=== PATIENT | male | born 1945 | race Caucasian/White ===

== ENCOUNTER 2021-03-24 04:25 | Inpatient (IN) | payer MEDICARE ==
[2021-03-24] MEDS ORDERED: Albuterol/Ipratropium 3.0-0.5 MG/3 ML Neb Soln NEB ONE (05:15)
--- NOTE | 2021-03-24 05:17 | EDM.PDOC ---
ED HPI GENERAL MEDICAL PROBLEM - General Chief Complaint: Respiratory Problem Stated Complaint: SOB Time Seen by Provider: 03/24/21 05:15 Source of Information: Reports: Patient History Limitations: Reports: No Limitations - History of Present Illness INITIAL COMMENTS - FREE TEXT/NARRATIVE: pt arrived with increased sob. He has not had increased swelling in the ankles. pt has been coughing lot for about 1 week and raising thick sputum. Onset: Gradual Duration: Day(s): Location: Reports: Chest Associated Symptoms: Reports: Cough, Shortness of Breath, Weakness - Related Data Allergies Allergy/AdvReac Type Severity Reaction Status Date / Time No Known Allergies Allergy Verified 03/24/21 04:38 Home Meds: Home Meds Acetaminophen/Diphenhydramine [Tylenol Pm Ex-Strength Caplet] 1 each PO BEDTIME 03/24/21 [History] Albuterol Sulfate 2.5 mg IH Q6HR PRN 03/24/21 [History] Albuterol Sulfate [Albuterol Sulfate Hfa] 8.5 gm IH ASDIRECTED 03/24/21 [History] Alendronate Sodium 70 mg PO WEEKLY 03/24/21 [History] DULoxetine [Cymbalta] 60 mg PO DAILY 03/24/21 [History] Finasteride 5 mg PO DAILY 03/24/21 [History] Losartan [Cozaar] 100 mg PO DAILY 03/24/21 [History] Metoprolol Succinate [Toprol Xl] 12.5 mg PO BEDTIME 03/24/21 [History] Pregabalin [Lyrica] 150 mg PO BID 03/24/21 [History] Tamsulosin [Tamsulosin 24 Hr] 0.4 mg PO DAILY 03/24/21 [History] Warfarin Sodium 4 mg PO ASDIRECTED 03/24/21 [History] amLODIPine Besylate [Amlodipine Besylate] 10 mg PO DAILY 03/24/21 [History] atorvaSTATin Calcium [Atorvastatin Calcium] 40 mg PO BEDTIME 03/24/21 [History] hydroCHLOROthiazide [Hydrochlorothiazide] 12.5 mg PO DAILY 03/24/21 [History] metFORMIN [Glucophage] 500 mg PO BIDMEALS 03/24/21 [History] Past Medical History HEENT History: Reports: Cataract, Retinal Detachment Other HEENT History: left detach Cardiovascular History: Reports: Afib, CAD, Heart Murmur, High Cholesterol, Hypertension, [place] Respiratory History: Reports: COPD, Sleep Apnea, SOB Gastrointestinal History: Reports: GERD Genitourinary History: Reports: BPH Musculoskeletal History: Reports: Arthritis, Back Pain, Chronic, Fracture Neurological History: Reports: None, Neuropathy, Peripheral Psychiatric History: Reports: Depression, Suicidal Ideation Endocrine/Metabolic History: Reports: Diabetes, Type II, Obesity/BMI 30+ Hematologic History: Reports: None Immunologic History: Reports: None Oncologic (Cancer) History: Reports: None Dermatologic History: Reports: Other (See Below) Other Dermatologic History: lower leg - Infectious Disease History Infectious Disease History: Reports: Chicken Pox, Mumps - Past Surgical History HEENT Surgical History: Reports: Cataract Surgery Cardiovascular Surgical History: Reports: Coronary Artery Stent Other Cardiovascular Surgeries/Procedures: 2002 10 GI Surgical History: Reports: Appendectomy, Colonoscopy, Hernia Repair/Other Musculoskeletal Surgical History: Reports: Other (See Below) Other Musculoskeletal Surgeries/Procedures:: wrist surg Social & Family History - Tobacco Use Tobacco Use Status *Q: Former Tobacco User Used Tobacco, but Quit: Yes Month/Year Tobacco Last Used: 2002 - Caffeine Use Caffeine Use: Reports: Coffee ED ROS GENERAL - Review of Systems Review Of Systems: See Below Constitutional: Reports: Other (pt has been doing alot of coughin for about 1 week. ) HEENT: Reports: No Symptoms Respiratory: Reports: Shortness of Breath, Wheezing, Cough, Sputum Cardiovascular: Reports: No Symptoms, Other (pt has a history of atrial fib. ) Endocrine: Reports: No Symptoms GI/Abdominal: Reports: No Symptoms : Reports: No Symptoms Musculoskeletal: Reports: No Symptoms Skin: Reports: No Symptoms Neurological: Reports: No Symptoms Psychiatric: Reports: Anxiety ED EXAM, GENERAL - Physical Exam Exam: See Below Free Text/Narrative:: pt arrived with a history of increased sob. He has been coughing for about 1 week and rasing thick sputum. Exam Limited By: Respiratory Distress General Appearance: Anxious, Moderate Distress, Other (pupils equal and reactive to lite) Ears: Normal TMs Nose: Normal Inspection Throat/Mouth: Normal Inspection Head: Atraumatic Neck: Normal Inspection Respiratory/Chest: Decreased Breath Sounds, Crackles, Wheezing GI/Abdominal: Soft, Non-Tender (Male) Exam: Deferred Rectal (Males) Exam: Deferred Back Exam: Normal Inspection Extremities: Other (pt has severe stasis dermatitis) Neurological: Alert, Oriented, Normal Cognition #1 Interpretation Rhythm: Other (pt is having ventricular ectopics. Pt has a rt bundle branch block.) QRS: RBBB Course - Vital Signs Last Recorded V/S: Last Vital Signs Temp 36.6 C 03/24/21 04:32 Pulse 64 03/24/21 06:03 Resp 19 03/24/21 06:03 BP 154/70 H 03/24/21 06:03 Pulse Ox 88 L 03/24/21 06:24 - Orders/Labs/Meds Orders: Active Orders 24 hr Category Date Time Status EKG Documentation Completion [RC] ASDIRECTED Care 03/24/21 05:23 Active RT Aerosol Therapy [RC] ASDIRECTED Care 03/24/21 05:15 Active Chest 1V Frontal [CR] Stat Exams 03/24/21 05:09 Taken Sodium Chloride 0.9% [Saline Flush] Med 03/24/21 05:40 Active 10 ml FLUSH ASDIRECTED PRN Saline Lock Insert [OM.PC] Routine Oth 03/24/21 05:40 Ordered EKG 12 Lead [EK] Routine Ther 03/24/21 05:23 Ordered Medication Orders Sodium Chloride (Sodium Chloride 0.9% 10 Ml Syringe) 10 ml FLUSH ASDIRECTED PRN PRN Reason: Keep Vein Open Last Admin: 03/24/21 05:59 Dose: 10 ml Documented by: PREILOR Labs: Laboratory Tests 03/24/21 03/24/21 03/24/21 Range/Units 05:28 05:28 05:28 WBC 6.6 (4.5-11.0) K/uL RBC 4.75 (4.30-5.90) M/uL Hgb 12.9 (12.0-15.0) g/dL Hct 41.0 (40.0-54.0) % MCV 86 (80-98) fL MCH 27 (27-31) pg MCHC 32 (32-36) % Plt Count 160 (150-400) K/uL Neut % (Auto) 72.5 H (36-66) % Lymph % (Auto) 14.8 L (24-44) % [place] % (Auto) 8.6 H (2-6) % Eos % (Auto) 3.8 (2-4) % Baso % (Auto) 0.3 (0-1) % PT (9.5-12.0) sec INR (0.80-1.20) D-Dimer, Quantitative (0.0-500.0) ng/mL Sodium 143 (140-148) mmol/L Potassium 4.3 (3.6-5.2) mmol/L Chloride 105 (100-108) mmol/L Carbon Dioxide 29 (21-32) mmol/L Anion Gap 8.7 (5.0-14.0) mmol/L BUN 20 H (7-18) mg/dL Creatinine 1.2 (0.8-1.3) mg/dL Est Cr Clr Drug Dosing 56.58 mL/min Estimated GFR (MDRD) 59 L (>60) Glucose 127 H (74-106) mg/dL Calcium 9.1 (8.5-10.1) mg/dL Total Bilirubin 0.5 (0.2-1.0) mg/dL AST 16 (15-37) U/L ALT 20 (12-78) U/L Alkaline Phosphatase 71 (46-116) U/L Troponin I 0.037 (0.000-0.056) ng/mL NT-Pro-B Natriuret Pep 2480 H (5-450) pg/mL Total Protein 8.0 (6.4-8.2) g/dL Albumin 3.7 (3.4-5.0) g/dL Globulin 4.3 H (2.3-3.5) g/dL Albumin/Globulin Ratio 0.9 L (1.2-2.2) Urine Color (YELLOW) Urine Appearance (CLEAR) Urine pH (5.0-8.0) Ur Specific [place] (1.008-1.030) Urine Protein (NEGATIVE) mg/dL Urine Glucose (UA) (NEGATIVE) mg/dL Urine Ketones (NEGATIVE) mg/dL Urine Occult Blood (NEGATIVE) Urine Nitrite (NEGATIVE) Urine Bilirubin (NEGATIVE) Urine Urobilinogen (0.2-1.0) EU/dL Ur Leukocyte Esterase (NEGATIVE) Urine RBC (0-5) Urine WBC (0-5) Ur Epithelial Cells Amorphous Sediment Urine Bacteria Urine Mucus Urine Other 03/24/21 03/24/21 03/24/21 Range/Units 05:28 05:28 06:26 WBC (4.5-11.0) K/uL RBC (4.30-5.90) M/uL Hgb (12.0-15.0) g/dL Hct (40.0-54.0) % MCV (80-98) fL MCH (27-31) pg MCHC (32-36) % Plt Count (150-400) K/uL Neut % (Auto) (36-66) % Lymph % (Auto) (24-44) % [place] % (Auto) (2-6) % Eos % (Auto) (2-4) % Baso % (Auto) (0-1) % PT 44.1 H (9.5-12.0) sec INR 4.16 H* (0.80-1.20) D-Dimer, Quantitative 485.02 (0.0-500.0) ng/mL Sodium (140-148) mmol/L Potassium (3.6-5.2) mmol/L Chloride (100-108) mmol/L Carbon Dioxide (21-32) mmol/L Anion Gap (5.0-14.0) mmol/L BUN (7-18) mg/dL Creatinine (0.8-1.3) mg/dL Est Cr Clr Drug Dosing mL/min Estimated GFR (MDRD) (>60) Glucose (74-106) mg/dL Calcium (8.5-10.1) mg/dL Total Bilirubin (0.2-1.0) mg/dL AST (15-37) U/L ALT (12-78) U/L Alkaline Phosphatase (46-116) U/L Troponin I (0.000-0.056) ng/mL NT-Pro-B Natriuret Pep (5-450) pg/mL Total Protein (6.4-8.2) g/dL Albumin (3.4-5.0) g/dL Globulin (2.3-3.5) g/dL Albumin/Globulin Ratio (1.2-2.2) Urine Color Yellow (YELLOW) Urine Appearance Clear (CLEAR) Urine pH 5.5 (5.0-8.0) Ur Specific [place] 1.020 (1.008-1.030) Urine Protein Negative (NEGATIVE) mg/dL Urine Glucose (UA) Negative (NEGATIVE) mg/dL Urine Ketones Negative (NEGATIVE) mg/dL Urine Occult Blood Negative (NEGATIVE) Urine Nitrite Negative (NEGATIVE) Urine Bilirubin Negative (NEGATIVE) Urine Urobilinogen 0.2 (0.2-1.0) EU/dL Ur Leukocyte Esterase Trace H (NEGATIVE) Urine RBC 0-5 (0-5) Urine WBC 0-5 (0-5) Ur Epithelial Cells Rare Amorphous Sediment Not seen Urine Bacteria Not seen Urine Mucus Not seen Urine Other See note Meds: Medications Generic Name Dose Route Start Last Admin Trade Name Freq PRN Reason Stop Dose Admin Sodium Chloride 10 ml 03/24/21 05:40 03/24/21 05:59 Sodium Chloride 0.9% 10 Ml Syringe FLUSH 10 ml ASDIRECTED PRN Administration Keep Vein Open Discontinued Medications Generic Name Dose Route Start Last Admin Trade Name Freq PRN Reason Stop Dose Admin Albuterol/Ipratropium 3 ml 03/24/21 05:15 03/24/21 05:21 Albuterol/Ipratropium 3.0-0.5 Mg/3 Ml Neb Soln NEB 03/24/21 05:16 3 ml ONETIME ONE Administration Furosemide 60 mg 03/24/21 05:40 03/24/21 05:58 Furosemide 40 Mg/4 Ml Vial IVPUSH 03/24/21 05:41 60 mg ONETIME ONE Administration Phytonadione 3 mg 03/24/21 06:14 03/24/21 06:46 Phytonadione 1 Mg/0.5 Ml Amp IM 03/24/21 06:15 3 mg ONETIME ONE Administration - Re-Assessments/Exams Free Text/Narrative Re-Assessment/Exam: 03/24/21 07:02 PT HAD A NORMAL TROP, HIS BNP IS ELEVATED. tHE INR IS GREATER THAN 4. hE WAS GIVEN lASIX BECAUSE OF PROBALE CHF AND HE IS PUTTING OUT WELL. Departure - Departure Disposition: Admitted As Inpatient 64 Condition: Fair Clinical Impression: CHF (congestive heart failure), Chronic a-fib, Elevated INR - Discharge Information Referrals: PCP,None [Primary Care Provider] - Forms: ED Department Discharge Care Plan Goals: ADMIT TO [facility]. Sepsis Event Note (ED) - Evaluation Sepsis Screening Result: No Definite Risk - Focused Exam Vital Signs: Vital Signs Temp Pulse Resp BP Pulse Ox Pulse Ox 03/24/21 06:24 88 L 03/24/21 06:03 64 19 154/70 H 94 L 03/24/21 04:32 36.6 C 67 20 163/80 H 93 L - My Orders Last 24 Hours: My Active Orders 03/24/21 05:09 Chest 1V Frontal [CR] Stat 03/24/21 05:15 RT Aerosol Therapy [RC] ASDIRECTED 03/24/21 05:23 EKG Documentation Completion [RC] ASDIRECTED EKG 12 Lead [EK] Routine 03/24/21 05:40 Sodium Chloride 0.9% [Saline Flush] 10 ml FLUSH ASDIRECTED PRN Saline Lock Insert [OM.PC] Routine - Assessment/Plan Last 24 Hours: My Active Orders 03/24/21 05:09 Chest 1V Frontal [CR] Stat 03/24/21 05:15 RT Aerosol Therapy [RC] ASDIRECTED 03/24/21 05:23 EKG Documentation Completion [RC] ASDIRECTED EKG 12 Lead [EK] Routine 03/24/21 05:40 Sodium Chloride 0.9% [Saline Flush] 10 ml FLUSH ASDIRECTED PRN Saline Lock Insert [OM.PC] Routine
[2021-03-24] MEDS ORDERED: Furosemide 40 MG/4 ML VIAL IVPUSH ONE (05:40)
[2021-03-24] MEDS ORDERED: Sodium Chloride 0.9% 10 ML Syringe FLUSH PRN ×2 (05:40→09:52)
--- NOTE | 2021-03-24 08:47 | PCM.HP.2 ---
H&P History of Present Illness - General Date of Service: 03/24/21 Admit Problem/Dx: Admission Diagnosis/Problem Admission Diagnosis/Problem CHF, Congestive heart failure Source of Information: Patient, Provider, RN Notes Reviewed History Limitations: Reports: No Limitations - History of Present Illness Initial Comments - Free Text/Narative: Mr. Baldwin is a 75-year-old gentleman who was admitted through the emergency department symptoms of progressive shortness of breath over the past several days. He does have a known history of COPD but denies prior history of conge stive heart failure. Shortness of breath had progressed to the point where he was becoming short of breath at rest and much worse shortness of breath with minimal exertion. He denies recent fever or chills, but has had a cough productive of light yellow sputum. He was unable to sleep this past night because of severe shortness of breath. He presented to the emergency department early this morning. Chest x-ray does show some evidence of pulmonary edema but no obvious infiltrates. White blood cell count is within normal range. He was treated with supplemental oxygen, nebulizer therapy, and IV furosemide in the emergency department. On initial presentation he was found to be hypoxic on room air. With treatment in the emergency department hypoxia has significantly improved and almost resolved. - Related Data Allergies/Adverse Reactions: Allergies Allergy/AdvReac Type Severity Reaction Status Date / Time No Known Allergies Allergy Verified 03/24/21 04:38 Home Medications: Home Meds Acetaminophen/Diphenhydramine [Tylenol Pm Ex-Strength Caplet] 1 each PO BEDTIME 03/24/21 [History] Albuterol Sulfate 2.5 mg IH Q6HR PRN 03/24/21 [History] Albuterol Sulfate [Albuterol Sulfate Hfa] 2 puff IH ASDIRECTED 03/24/21 [History] Alendronate Sodium 70 mg PO WEEKLY 03/24/21 [History] DULoxetine [Cymbalta] 60 mg PO DAILY 03/24/21 [History] Finasteride 5 mg PO DAILY 03/24/21 [History] Losartan [Cozaar] 100 mg PO DAILY 03/24/21 [History] Metoprolol Succinate [Toprol Xl] 12.5 mg PO BEDTIME 03/24/21 [History] Pregabalin [Lyrica] 150 mg PO BID 03/24/21 [History] Tamsulosin [Tamsulosin 24 Hr] 0.4 mg PO DAILY 03/24/21 [History] Warfarin Sodium 4 mg PO ASDIRECTED 03/24/21 [History] amLODIPine Besylate [Amlodipine Besylate] 10 mg PO DAILY 03/24/21 [History] atorvaSTATin Calcium [Atorvastatin Calcium] 40 mg PO BEDTIME 03/24/21 [History] hydroCHLOROthiazide [Hydrochlorothiazide] 12.5 mg PO DAILY 03/24/21 [History] metFORMIN [Glucophage] 500 mg PO BIDMEALS 03/24/21 [History] Past Medical History HEENT History: Reports: Cataract, Retinal Detachment Other HEENT History: left detach Cardiovascular History: Reports: Afib, CAD, Heart Murmur, High Cholesterol, Hypertension, [place] Respiratory History: Reports: COPD, Sleep Apnea, SOB Gastrointestinal History: Reports: GERD Genitourinary History: Reports: BPH Musculoskeletal History: Reports: Arthritis, Back Pain, Chronic, Fracture Neurological History: Reports: None, Neuropathy, Peripheral Psychiatric History: Reports: Depression, Suicidal Ideation Endocrine/Metabolic History: Reports: Diabetes, Type II, Obesity/BMI 30+ Hematologic History: Reports: None Immunologic History: Reports: None Oncologic (Cancer) History: Reports: None Dermatologic History: Reports: Other (See Below) Other Dermatologic History: lower leg - Infectious Disease History Infectious Disease History: Reports: Chicken Pox, Mumps - Past Surgical History HEENT Surgical History: Reports: Cataract Surgery Cardiovascular Surgical History: Reports: Coronary Artery Stent Other Cardiovascular Surgeries/Procedures: 2002 10 GI Surgical History: Reports: Appendectomy, Colonoscopy, Hernia Repair/Other Musculoskeletal Surgical History: Reports: Other (See Below) Other Musculoskeletal Surgeries/Procedures:: wrist surg Social & Family History - Tobacco Use Tobacco Use Status *Q: Former Tobacco User Used Tobacco, but Quit: Yes Month/Year Tobacco Last Used: 2002 - Caffeine Use Caffeine Use: Reports: Coffee H&P Review of Systems - Review of Systems: Review Of Systems: See Below General: Reports: Malaise, Weakness, Fatigue. Denies: Fever, Chills HEENT: Reports: No Symptoms Pulmonary: Reports: Shortness of Breath, Cough, Sputum. Denies: Wheezing, Pleuritic Chest Pain, Hemoptysis Cardiovascular: Reports: Dyspnea on Exertion, PND. Denies: Chest Pain, Palpitations, Orthopnea, Edema, Lightheadedness Gastrointestinal: Reports: No Symptoms Genitourinary: Reports: No Symptoms Musculoskeletal: Reports: No Symptoms Skin: Reports: No Symptoms Psychiatric: Reports: No Symptoms Neurological: Reports: No Symptoms Hematologic/Lymphatic: Reports: No Symptoms Immunologic: Reports: No Symptoms Exam - Exam Exam: See Below - Vital Signs Vital Signs: Last Vital Signs Temp 97.9 F 03/24/21 04:32 Pulse 64 03/24/21 06:03 Resp 20 03/24/21 08:28 BP 151/62 H 03/24/21 08:28 Pulse Ox 94 L 03/24/21 08:28 Weight: 229 lb - Exam Quality Assessment: Supplemental Oxygen, DVT Prophylaxis General: Alert, Oriented, Cooperative, Mild Distress HEENT: Conjunctiva Clear, Hearing Intact, Mucosa Moist & [place], Normal Nasal Septum, Posterior Pharynx Clear, Pupils Equal Neck: Supple, Trachea Midline, +2 Carotid Pulse wo Bruit Lungs: Normal Respiratory Effort, Decreased Breath Sounds. No: Rales, Rhonchi, Wheezing Cardiovascular: Regular Rate, Regular Rhythm, Normal S1, Normal S2, Systolic Murmur. No: Diastolic Murmur GI/Abdominal Exam: Soft, Non-Tender, No Organomegaly, No Distention Back Exam: Normal Inspection, Full Range of Motion Extremities: Non-Tender, No Pedal Edema Skin: Warm, Dry, Intact Neurological: Cranial Nerves Intact, Strength Equal Bilateral, Normal Speech, Normal Tone, Sensation Intact. No: Focal Deficit Neuro Extensive - Mental Status: Alert, Oriented x3, Normal Mood/Affect, Normal Cognition, Memory Intact - Patient Data Lab Results Last 24 hrs: Laboratory Results - last 24 hr 03/24/21 03/24/21 03/24/21 Range/Units 05:28 05:28 05:28 WBC 6.6 (4.5-11.0) K/uL RBC 4.75 (4.30-5.90) M/uL Hgb 12.9 (12.0-15.0) g/dL Hct 41.0 (40.0-54.0) % MCV 86 (80-98) fL MCH 27 (27-31) pg MCHC 32 (32-36) % Plt Count 160 (150-400) K/uL Neut % (Auto) 72.5 H (36-66) % Lymph % (Auto) 14.8 L (24-44) % [place] % (Auto) 8.6 H (2-6) % Eos % (Auto) 3.8 (2-4) % Baso % (Auto) 0.3 (0-1) % PT (9.5-12.0) sec INR (0.80-1.20) D-Dimer, Quantitative (0.0-500.0) ng/mL Sodium 143 (140-148) mmol/L Potassium 4.3 (3.6-5.2) mmol/L Chloride 105 (100-108) mmol/L Carbon Dioxide 29 (21-32) mmol/L Anion Gap 8.7 (5.0-14.0) mmol/L BUN 20 H (7-18) mg/dL Creatinine 1.2 (0.8-1.3) mg/dL Est Cr Clr Drug Dosing 56.58 mL/min Estimated GFR (MDRD) 59 L (>60) Glucose 127 H (74-106) mg/dL Calcium 9.1 (8.5-10.1) mg/dL Total Bilirubin 0.5 (0.2-1.0) mg/dL AST 16 (15-37) U/L ALT 20 (12-78) U/L Alkaline Phosphatase 71 (46-116) U/L Troponin I 0.037 (0.000-0.056) ng/mL NT-Pro-B Natriuret Pep 2480 H (5-450) pg/mL Total Protein 8.0 (6.4-8.2) g/dL Albumin 3.7 (3.4-5.0) g/dL Globulin 4.3 H (2.3-3.5) g/dL Albumin/Globulin Ratio 0.9 L (1.2-2.2) Urine Color (YELLOW) Urine Appearance (CLEAR) Urine pH (5.0-8.0) Ur Specific [place] (1.008-1.030) Urine Protein (NEGATIVE) mg/dL Urine Glucose (UA) (NEGATIVE) mg/dL Urine Ketones (NEGATIVE) mg/dL Urine Occult Blood (NEGATIVE) Urine Nitrite (NEGATIVE) Urine Bilirubin (NEGATIVE) Urine Urobilinogen (0.2-1.0) EU/dL Ur Leukocyte Esterase (NEGATIVE) Urine RBC (0-5) Urine WBC (0-5) Ur Epithelial Cells Amorphous Sediment Urine Bacteria Urine Mucus Urine Other 0703/24/21 03/24/21 Range/Units 05:28 05:28 06:26 WBC (4.5-11.0) K/uL RBC (4.30-5.90) M/uL Hgb (12.0-15.0) g/dL Hct (40.0-54.0) % MCV (80-98) fL MCH (27-31) pg MCHC (32-36) % Plt Count (150-400) K/uL Neut % (Auto) (36-66) % Lymph % (Auto) (24-44) % [place] % (Auto) (2-6) % Eos % (Auto) (2-4) % Baso % (Auto) (0-1) % PT 44.1 H (9.5-12.0) sec INR 4.16 H* (0.80-1.20) D-Dimer, Quantitative 485.02 (0.0-500.0) ng/mL Sodium (140-148) mmol/L Potassium (3.6-5.2) mmol/L Chloride (100-108) mmol/L Carbon Dioxide (21-32) mmol/L Anion Gap (5.0-14.0) mmol/L BUN (7-18) mg/dL Creatinine (0.8-1.3) mg/dL Est Cr Clr Drug Dosing mL/min Estimated GFR (MDRD) (>60) Glucose (74-106) mg/dL Calcium (8.5-10.1) mg/dL Total Bilirubin (0.2-1.0) mg/dL AST (15-37) U/L ALT (12-78) U/L Alkaline Phosphatase (46-116) U/L Troponin I (0.000-0.056) ng/mL NT-Pro-B Natriuret Pep (5-450) pg/mL Total Protein (6.4-8.2) g/dL Albumin (3.4-5.0) g/dL Globulin (2.3-3.5) g/dL Albumin/Globulin Ratio (1.2-2.2) Urine Color Yellow (YELLOW) Urine Appearance Clear (CLEAR) Urine pH 5.5 (5.0-8.0) Ur Specific [place] 1.020 (1.008-1.030) Urine Protein Negative (NEGATIVE) mg/dL Urine Glucose (UA) Negative (NEGATIVE) mg/dL Urine Ketones Negative (NEGATIVE) mg/dL Urine Occult Blood Negative (NEGATIVE) Urine Nitrite Negative (NEGATIVE) Urine Bilirubin Negative (NEGATIVE) Urine Urobilinogen 0.2 (0.2-1.0) EU/dL Ur Leukocyte Esterase Trace H (NEGATIVE) Urine RBC 0-5 (0-5) Urine WBC 0-5 (0-5) Ur Epithelial Cells Rare Amorphous Sediment Not seen Urine Bacteria Not seen Urine Mucus Not seen Urine Other See note Result Diagrams: 03/24/21 05:28 03/24/21 05:28 Sepsis Event Note - Evaluation Sepsis Screening Result: No Definite Risk - Focused Exam Vital Signs: Vital Signs Temp Pulse Resp BP Pulse Ox Pulse Ox 03/24/21 08:28 20 151/62 H 94 L 03/24/21 07:20 18 158/74 H 97 03/24/21 06:24 88 L 03/24/21 06:03 64 19 154/70 H 94 L 03/24/21 04:32 97.9 F 67 20 163/80 H 93 L *Q Meaningful Use (ADM) - VTE *Q VTE Pharmacological Contraindications *Q: High INR Value - VTE Risk Assess *Q Each Risk Factor Represents 1 Point: Obesity ( BMI > 25 kg/m2), Congestive heart failure (CHF), Abnormal Pulmonary Function (COPD) Total Score 1 Point Risk Factors: 3 Each Risk Factor Represents 2 Points: None Total Score 2 Point Risk Factors: 0 Each Risk Factor Represents 3 Points: Age 75 Years or Greater Total Score 3 Point Risk Factors: 3 Each Risk Factor Represents 5 Points: None Total Score 5 Point Risk Factors: 0 Venous Thromboembolism Risk Factor Score *Q: 6 Problem List Initiated/Reviewed/Updated: Yes Orders Last 24hrs: Active Orders 24 hr Category Date Time Status Patient Status Manage Transfer [TRANSFER] Routine ADT 03/24/21 08:41 Ordered EKG Documentation Completion [RC] ASDIRECTED Care 03/24/21 05:23 Active RT Aerosol Therapy [RC] ASDIRECTED Care 03/24/21 05:15 Active Chest 1V Frontal [CR] Stat Exams 03/24/21 05:09 Taken Sodium Chloride 0.9% [Saline Flush] Med 03/24/21 05:40 Active 10 ml FLUSH ASDIRECTED PRN Saline Lock Insert [OM.PC] Routine Oth 03/24/21 05:40 Ordered Resuscitation Status Routine Resus Stat 03/24/21 08:43 Ordered EKG 12 Lead [EK] Routine Ther 03/24/21 05:23 Ordered Medication Orders Sodium Chloride (Sodium Chloride 0.9% 10 Ml Syringe) 10 ml FLUSH ASDIRECTED PRN PRN Reason: Keep Vein Open Last Admin: 03/24/21 05:59 Dose: 10 ml Documented by: PREILOR Assessment/Plan Comment:: ASSESSMENT AND PLAN PROBABLE CONGESTIVE HEART FAILURE-he does have known underlying COPD and history of coronary artery disease. Denies prior history of congestive heart failure. Chest x-ray appears to be consistent with some pulmonary edema, no evidence of underlying infection. -IV furosemide this afternoon, reassess in a.m. -Echocardiogram when available on Saturday, or as an outpatient -Continue Cozaar and metoprolol -2 g sodium diet -Supplemental oxygen as needed COPD-no evidence of acute exacerbation or underlying pulmonary infection -Continue outpatient medications ELEVATED INR-on long-term oral anticoagulation with warfarin secondary to atrial fibrillation. Vitamin K given IM in the emergency department -Recheck INR in a.m. -Warfarin 8 mg p.o. daily TYPE 2 DIABETES MELLITUS -Continue outpatient medications -4 times daily glucometers -Low-dose sliding scale Humalog MAINTENANCE ISSUES -DVT prophylaxis; current therapy with warfarin should provide adequate DVT prophylaxis -GI prophylaxis; not indicated -Cox catheter; not indicated -Nutrition; 2 g sodium diet -Nicotine dependence; not required CODE STATUS-FULL CODE ADMISSION STATUS-patient will be admitted to inpatient status, expect at least a 2 night hospital stay for evaluation and management of problems as outlined above. At the time of this admission I do not reasonably expected evaluation and management of this problem will require more than a 96 hour hospital stay. DISPOSITION-anticipate discharge to home after the hospital stay. PRIMARY CARE PROVIDER-patient is from [facility] and receives his primary care there - Mortality Measure Prognosis:: Good
--- NOTE | 2021-03-24 08:52 | CR ---
CHEST: Portable 03/24/2021 at 5:24 AM CLINICAL HISTORY:SOB COMPARISON:None FINDINGS: Heart is enlarged. Pulmonary vascularity appears mildly cephalized. There is mild increase in the perihilar lung markings and some mild interstitial prominence. No effusion is seen. There are atherosclerotic changes in the aorta. IMPRESSION: Cardiomegaly with mild vascular cephalization and some increase in perihilar lung markings. This may represent some mild CHF. Pneumonitis is not excluded
[2021-03-24] MEDS ORDERED: Albuterol 8 GM Inhaler INH PRN (09:52)
[2021-03-24] MEDS ORDERED: 50% Dextrose in Water 50 ML Syringe IV PRN (09:52)
[2021-03-24] MEDS ORDERED: Non-Formulary Medication 1 Each (Losartan [Cozaar] 100 MG Tablet) PO SCH (09:52)
[2021-03-24] MEDS ORDERED: Non-Formulary Medication 1 Each (Amlodipine Besylate [Amlodipine Besylate] 10 MG Tablet) PO SCH (09:52)
[2021-03-24] MEDS ORDERED: Non-Formulary Medication 1 Each (Duloxetine [Cymbalta] 60 MG Cap) PO SCH (09:52)
[2021-03-24] MEDS ORDERED: Polyethylene Glycol 3350 Powder 17 GM Packet PO PRN (09:52)
[2021-03-24] MEDS ORDERED: Glucose Gel 15 GM in 37.5 GM Tube PO PRN (09:52)
[2021-03-24] MEDS ORDERED: Acetaminophen 325 MG Tab PO PRN (09:52)
[2021-03-24] MEDS ORDERED: Ondansetron 4 MG/2 ML SDV IV PRN (09:52)
[2021-03-24] MEDS ORDERED: Non-Formulary Medication 1 Each (Pregabalin [Lyrica] 150 MG Cap) PO SCH (09:52)
[2021-03-24] MEDS: Albuterol 0.083% 2.5 MG/3 ML Neb Soln INH PRN ×2 (10:50→16:39)
[2021-03-24] MEDS: Hydrochlorothiazide 12.5 MG Cap PO SCH (11:05)
[2021-03-24] MEDS: amLODIPine 5 MG Tab PO SCH (11:05)
[2021-03-24] MEDS: Losartan 50 MG Tab PO SCH (11:05)
[2021-03-24] MEDS: DULoxetine 30 MG Cap PO SCH (11:06)
[2021-03-24] MEDS: Finasteride 5 MG Tab PO SCH (11:06)
[2021-03-24] MEDS: Pregabalin 75 MG Cap PO SCH ×2 (11:08→21:10)
[2021-03-24] MEDS: Insulin Lispro 100 Unit/ML 3 ML KwikPen SUBCUT SCH ×3 (11:18→21:36)
[2021-03-24] MEDS ORDERED: Furosemide 20 MG/2 ML VIAL IVPUSH ONE (16:00)
[2021-03-24] MEDS: Tamsulosin 0.4 MG Cap.ER PO SCH (16:53)
[2021-03-24] MEDS: metFORMIN 500 MG Tab PO SCH (16:53)
[2021-03-24] MEDS ORDERED: Non-Formulary Medication 1 Each (Atorvastatin Calcium [Atorvastatin Calcium] 40 MG Tablet) PO SCH (21:00)
[2021-03-24] MEDS: Metoprolol Succinate 25 MG Tab.ER PO SCH (21:10)
[2021-03-24] MEDS: atorvaSTATin 20 MG Tab PO SCH (21:10)
[2021-03-24] MEDS: Acetaminophen 500 MG Tab PO SCH (21:11)
[2021-03-24] MEDS: diphenhydrAMINE 25 MG Cap PO SCH (21:11)
[2021-03-25] MEDS: Albuterol 0.083% 2.5 MG/3 ML Neb Soln INH PRN ×3 (05:11→21:28)
[2021-03-25] MEDS: Insulin Lispro 100 Unit/ML 3 ML KwikPen SUBCUT SCH ×4 (07:46→21:26)
[2021-03-25] MEDS: metFORMIN 500 MG Tab PO SCH ×2 (07:56→17:24)
[2021-03-25] MEDS ORDERED: Magnesium Sulfate/Water 2 GM in Premix Bag 1 BAG IV SCH (08:00)
[2021-03-25] MEDS ORDERED: Potassium Chloride 20 MEQ Tab.ER PO ONE ×2 (08:15→17:00)
[2021-03-25] MEDS ORDERED: Furosemide 20 MG/2 ML VIAL IVPUSH ONE ×2 (08:15→17:00)
[2021-03-25] MEDS: DULoxetine 30 MG Cap PO SCH (09:02)
[2021-03-25] MEDS: Magnesium Oxide 400 MG Tab PO SCH ×2 (09:02→21:15)
[2021-03-25] MEDS: Finasteride 5 MG Tab PO SCH (09:02)
[2021-03-25] MEDS: Hydrochlorothiazide 12.5 MG Cap PO SCH (09:02)
[2021-03-25] MEDS: Losartan 50 MG Tab PO SCH (09:03)
[2021-03-25] MEDS: amLODIPine 5 MG Tab PO SCH (09:03)
[2021-03-25] MEDS: Pregabalin 75 MG Cap PO SCH ×2 (09:07→21:23)
--- NOTE | 2021-03-25 09:54 | PCM.PN ---
- General Info Date of Service: 03/25/21 Subjective Update: Mr. Baldwin has been stable over the last 24 hours, with less shortness of breath. He has had an excellent diuresis since yesterday and weight has decreased approximately 5 pounds. He did experience some shortness of breath this morning when he awoke but that seemed to resolve with use of a nebulizer. Saturations have been good, currently not requiring supplemental oxygen. Functional Status: Reports: Tolerating Diet, Ambulating, Urinating - Review of Systems General: Reports: No Symptoms HEENT: Reports: No Symptoms Pulmonary: Reports: Shortness of Breath. Denies: Pleuritic Chest Pain, Cough, Sputum, Hemoptysis, Wheezing Cardiovascular: Reports: Dyspnea on Exertion, Edema. Denies: Chest Pain, Palpitations, Orthopnea, PND Gastrointestinal: Reports: No Symptoms Genitourinary: Reports: No Symptoms - Patient Data Vitals - Most Recent: Last Vital Signs Temp 96.8 F L 03/25/21 07:47 Pulse 66 03/25/21 07:47 Resp 17 03/25/21 07:47 BP 143/76 H 03/25/21 09:03 Pulse Ox 95 03/25/21 07:47 Weight - Most Recent: 220 lb 9.6 oz I&O - Last 24 Hours: Intake & Output 03/24/21 03/25/21 03/25/21 22:59 06:59 14:59 Intake Total 500 200 50 Output Total 900 325 Balance -400 -125 50 Lab Results Last 24 Hours: Laboratory Results - last 24 hr 03/24/21 03/24/21 03/24/21 Range/Units 11:17 16:51 20:56 WBC (4.5-11.0) K/uL RBC (4.30-5.90) M/uL Hgb (12.0-15.0) g/dL Hct (40.0-54.0) % MCV (80-98) fL MCH (27-31) pg MCHC (32-36) % Plt Count (150-400) K/uL Neut % (Auto) (36-66) % Lymph % (Auto) (24-44) % Anson % (Auto) (2-6) % Eos % (Auto) (2-4) % Baso % (Auto) (0-1) % PT (9.5-12.0) sec INR (0.80-1.20) Sodium (140-148) mmol/L Potassium (3.6-5.2) mmol/L Chloride (100-108) mmol/L Carbon Dioxide (21-32) mmol/L Anion Gap (5.0-14.0) mmol/L BUN (7-18) mg/dL Creatinine (0.8-1.3) mg/dL Est Cr Clr Drug Dosing mL/min Estimated GFR (MDRD) (>60) Glucose (74-106) mg/dL POC Glucose 118 H 109 H 111 H (74-106) mg/dL Calcium (8.5-10.1) mg/dL Magnesium (1.8-2.4) mg/dL 03/25/21 03/25/21 03/25/21 Range/Units 04:40 04:40 04:40 WBC 5.9 (4.5-11.0) K/uL RBC 4.49 (4.30-5.90) M/uL Hgb 12.3 (12.0-15.0) g/dL Hct 38.5 L (40.0-54.0) % MCV 86 (80-98) fL MCH 27 (27-31) pg MCHC 32 (32-36) % Plt Count 156 (150-400) K/uL Neut % (Auto) 59.6 (36-66) % Lymph % (Auto) 20.9 L (24-44) % Anson % (Auto) 10.9 H (2-6) % Eos % (Auto) 8.1 H (2-4) % Baso % (Auto) 0.5 (0-1) % PT 28.0 H (9.5-12.0) sec INR 2.62 H (0.80-1.20) Sodium 143 (140-148) mmol/L Potassium 3.5 L (3.6-5.2) mmol/L Chloride 104 (100-108) mmol/L Carbon Dioxide 31 (21-32) mmol/L Anion Gap 11.5 (5.0-14.0) mmol/L BUN 16 (7-18) mg/dL Creatinine 1.1 (0.8-1.3) mg/dL Est Cr Clr Drug Dosing 61.81 mL/min Estimated GFR (MDRD) > 60 (>60) Glucose 109 H (74-106) mg/dL POC Glucose (74-106) mg/dL Calcium 8.6 (8.5-10.1) mg/dL Magnesium 1.7 L (1.8-2.4) mg/dL 03/25/21 Range/Units 07:45 WBC (4.5-11.0) K/uL RBC (4.30-5.90) M/uL Hgb (12.0-15.0) g/dL Hct (40.0-54.0) % MCV (80-98) fL MCH (27-31) pg MCHC (32-36) % Plt Count (150-400) K/uL Neut % (Auto) (36-66) % Lymph % (Auto) (24-44) % Anson % (Auto) (2-6) % Eos % (Auto) (2-4) % Baso % (Auto) (0-1) % PT (9.5-12.0) sec INR (0.80-1.20) Sodium (140-148) mmol/L Potassium (3.6-5.2) mmol/L Chloride (100-108) mmol/L Carbon Dioxide (21-32) mmol/L Anion Gap (5.0-14.0) mmol/L BUN (7-18) mg/dL Creatinine (0.8-1.3) mg/dL Est Cr Clr Drug Dosing mL/min Estimated GFR (MDRD) (>60) Glucose (74-106) mg/dL POC Glucose 115 H (74-106) mg/dL Calcium (8.5-10.1) mg/dL Magnesium (1.8-2.4) mg/dL Med Orders - Current: Current Medications Acetaminophen (Acetaminophen 325 Mg Tab) 650 mg PO Q4H PRN PRN Reason: Pain (Mild 1-3)/fever Acetaminophen (Acetaminophen 500 Mg Tab) 500 mg PO BEDTIME [facility] Last Admin: 03/24/21 21:11 Dose: 500 mg Documented by: Albuterol (Albuterol 0.083% 2.5 Mg/3 Ml Neb Soln) 2.5 mg INH Q6HR PRN PRN Reason: Wheezing Last Admin: 03/25/21 05:11 Dose: 2.5 mg Documented by: Albuterol (Albuterol 8 Gm Inhaler) 0 gm INH Q4H PRN PRN Reason: Dyspnea Amlodipine Besylate (Amlodipine 5 Mg Tab) 10 mg PO DAILY [facility] Last Admin: 03/25/21 09:03 Dose: 10 mg Documented by: Atorvastatin Calcium (Atorvastatin 20 Mg Tab) 40 mg PO BEDTIME [facility] Last Admin: 03/24/21 21:10 Dose: 40 mg Documented by: Dextrose (Glucose Gel 15 Gm In 37.5 Gm Tube) 15 gm PO ONETIME PRN PRN Reason: Hypoglycemia Dextrose/Water (50% Dextrose In Water 50 Ml Syringe) 50 ml IV ONETIME PRN PRN Reason: Hypoglycemia Diphenhydramine HCl (Diphenhydramine 25 Mg Cap) 25 mg PO BEDTIME [facility] Last Admin: 03/24/21 21:11 Dose: 25 mg Documented by: Duloxetine HCl (Duloxetine 30 Mg Cap) 60 mg PO DAILY [facility] Last Admin: 03/25/21 09:02 Dose: 60 mg Documented by: Finasteride (Finasteride 5 Mg Tab) 5 mg PO DAILY [facility] Last Admin: 03/25/21 09:02 Dose: 5 mg Documented by: Furosemide (Furosemide 40 Mg/4 Ml Vial) 20 mg IVPUSH NOW ONE Stop: 03/25/21 17:01 Hydrochlorothiazide (Hydrochlorothiazide 12.5 Mg Cap) 12.5 mg PO DAILY [facility] Last Admin: 03/25/21 09:02 Dose: 12.5 mg Documented by: Magnesium Sulfate 2 gm/ Premix 50 mls @ 25 mls/hr IV Q6H [facility] Stop: 03/25/21 09:59 Last Admin: 03/25/21 09:00 Dose: 25 mls/hr Documented by: Insulin Human Lispro (Insulin Lispro 100 Unit/Ml 3 Ml Kwikpen) 0 unit SUBCUT QIDACANDBED [facility]; Protocol Last Admin: 03/25/21 07:46 Dose: Not Given Documented by: Losartan Potassium (Losartan 50 Mg Tab) 100 mg PO DAILY [facility] Last Admin: 03/25/21 09:03 Dose: 100 mg Documented by: Magnesium Oxide (Magnesium Oxide 400 Mg Tab) 400 mg PO BID [facility] Last Admin: 03/25/21 09:02 Dose: 400 mg Documented by: Metformin HCl (Metformin 500 Mg Tab) 500 mg PO BIDMEALS [facility] Last Admin: 03/25/21 07:56 Dose: 500 mg Documented by: Metoprolol Succinate (Metoprolol Succinate 25 Mg Tab.Er) 12.5 mg PO BEDTIME [facility] Last Admin: 03/24/21 21:10 Dose: 12.5 mg Documented by: Ondansetron HCl (Ondansetron 4 Mg/2 Ml Sdv) 4 mg IV Q4H PRN PRN Reason: Nausea/Vomiting Polyethylene Glycol (Polyethylene Glycol 3350 Powder 17 Gm Packet) 17 gm PO DAILY PRN PRN Reason: Constipation Potassium Chloride (Potassium Chloride 20 Meq Tab.Er) 40 meq PO ONETIME ONE Stop: 03/25/21 17:01 Pregabalin (Pregabalin 75 Mg Cap) 150 mg PO BID [facility] Last Admin: 03/25/21 09:07 Dose: 150 mg Documented by: Sodium Chloride (Sodium Chloride 0.9% 10 Ml Syringe) 10 ml FLUSH ASDIRECTED PRN PRN Reason: Keep Vein Open Tamsulosin HCl (Tamsulosin 0.4 Mg Cap.Er) 0.4 mg PO QPM [facility] Last Admin: 03/24/21 16:53 Dose: 0.4 mg Documented by: Discontinued Medications Albuterol/Ipratropium (Albuterol/Ipratropium 3.0-0.5 Mg/3 Ml Neb Soln) 3 ml NEB ONETIME ONE Stop: 03/24/21 05:16 Last Admin: 03/24/21 05:21 Dose: 3 ml Documented by: Furosemide (Furosemide 40 Mg/4 Ml Vial) 60 mg IVPUSH ONETIME ONE Stop: 03/24/21 05:41 Last Admin: 03/24/21 05:58 Dose: 60 mg Documented by: Furosemide (Furosemide 20 Mg/2 Ml Vial) 20 mg IVPUSH NOW ONE Stop: 03/24/21 16:01 Last Admin: 03/24/21 16:05 Dose: 20 mg Documented by: Furosemide (Furosemide 20 Mg/2 Ml Vial) 20 mg IVPUSH NOW ONE Stop: 03/25/21 08:16 Last Admin: 03/25/21 08:59 Dose: 20 mg Documented by: Furosemide (Furosemide 40 Mg/4 Ml Vial) 20 mg IVPUSH NOW ONE Stop: 03/25/21 17:43 Phytonadione (Phytonadione 1 Mg/0.5 Ml Amp) 3 mg IM ONETIME ONE Stop: 03/24/21 06:15 Last Admin: 03/24/21 06:46 Dose: 3 mg Documented by: Potassium Chloride (Potassium Chloride 20 Meq Tab.Er) 40 meq PO ONETIME ONE Stop: 03/25/21 08:16 Last Admin: 03/25/21 09:07 Dose: 40 meq Documented by: Sodium Chloride (Sodium Chloride 0.9% 10 Ml Syringe) 10 ml FLUSH ASDIRECTED PRN PRN Reason: Keep Vein Open Last Admin: 03/24/21 05:59 Dose: 10 ml Documented by: Warfarin Sodium 5 mg/ Warfarin (Sodium 1 mg) 6 mg PO ONETIME ONE Stop: 03/24/21 13:31 Last Admin: 03/24/21 13:57 Dose: 6 mg Documented by: - Exam Quality Assessment: DVT Prophylaxis General: Alert, Oriented, Cooperative, Mild Distress Lungs: Clear to Auscultation, Normal Respiratory Effort Cardiovascular: Regular Rate, Regular Rhythm, No Murmurs GI/Abdominal Exam: Soft, Non-Tender, No Organomegaly, No Distention Extremities: Non-Tender, Pedal Edema - Patient Data Lab Results Last 24 hrs: Laboratory Results - last 24 hr 03/24/21 03/24/21 03/24/21 Range/Units 11:17 16:51 20:56 WBC (4.5-11.0) K/uL RBC (4.30-5.90) M/uL Hgb (12.0-15.0) g/dL Hct (40.0-54.0) % MCV (80-98) fL MCH (27-31) pg MCHC (32-36) % Plt Count (150-400) K/uL Neut % (Auto) (36-66) % Lymph % (Auto) (24-44) % Anson % (Auto) (2-6) % Eos % (Auto) (2-4) % Baso % (Auto) (0-1) % PT (9.5-12.0) sec INR (0.80-1.20) Sodium (140-148) mmol/L Potassium (3.6-5.2) mmol/L Chloride (100-108) mmol/L Carbon Dioxide (21-32) mmol/L Anion Gap (5.0-14.0) mmol/L BUN (7-18) mg/dL Creatinine (0.8-1.3) mg/dL Est Cr Clr Drug Dosing mL/min Estimated GFR (MDRD) (>60) Glucose (74-106) mg/dL POC Glucose 118 H 109 H 111 H (74-106) mg/dL Calcium (8.5-10.1) mg/dL Magnesium (1.8-2.4) mg/dL 03/25/21 03/25/21 03/25/21 Range/Units 04:40 04:40 04:40 WBC 5.9 (4.5-11.0) K/uL RBC 4.49 (4.30-5.90) M/uL Hgb 12.3 (12.0-15.0) g/dL Hct 38.5 L (40.0-54.0) % MCV 86 (80-98) fL MCH 27 (27-31) pg MCHC 32 (32-36) % Plt Count 156 (150-400) K/uL Neut % (Auto) 59.6 (36-66) % Lymph % (Auto) 20.9 L (24-44) % Anson % (Auto) 10.9 H (2-6) % Eos % (Auto) 8.1 H (2-4) % Baso % (Auto) 0.5 (0-1) % PT 28.0 H (9.5-12.0) sec INR 2.62 H (0.80-1.20) Sodium 143 (140-148) mmol/L Potassium 3.5 L (3.6-5.2) mmol/L Chloride 104 (100-108) mmol/L Carbon Dioxide 31 (21-32) mmol/L Anion Gap 11.5 (5.0-14.0) mmol/L BUN 16 (7-18) mg/dL Creatinine 1.1 (0.8-1.3) mg/dL Est Cr Clr Drug Dosing 61.81 mL/min Estimated GFR (MDRD) > 60 (>60) Glucose 109 H (74-106) mg/dL POC Glucose (74-106) mg/dL Calcium 8.6 (8.5-10.1) mg/dL Magnesium 1.7 L (1.8-2.4) mg/dL 03/25/21 Range/Units 07:45 WBC (4.5-11.0) K/uL RBC (4.30-5.90) M/uL Hgb (12.0-15.0) g/dL Hct (40.0-54.0) % MCV (80-98) fL MCH (27-31) pg MCHC (32-36) % Plt Count (150-400) K/uL Neut % (Auto) (36-66) % Lymph % (Auto) (24-44) % Anson % (Auto) (2-6) % Eos % (Auto) (2-4) % Baso % (Auto) (0-1) % PT (9.5-12.0) sec INR (0.80-1.20) Sodium (140-148) mmol/L Potassium (3.6-5.2) mmol/L Chloride (100-108) mmol/L Carbon Dioxide (21-32) mmol/L Anion Gap (5.0-14.0) mmol/L BUN (7-18) mg/dL Creatinine (0.8-1.3) mg/dL Est Cr Clr Drug Dosing mL/min Estimated GFR (MDRD) (>60) Glucose (74-106) mg/dL POC Glucose 115 H (74-106) mg/dL Calcium (8.5-10.1) mg/dL Magnesium (1.8-2.4) mg/dL Result Diagrams: 03/25/21 04:40 03/25/21 04:40 Sepsis Event Note - Evaluation Sepsis Screening Result: No Definite Risk - Focused Exam Vital Signs: Vital Signs Temp Pulse Resp BP BP Pulse Ox 03/25/21 09:03 143/76 H 03/25/21 07:47 96.8 F L 66 17 143/76 H 95 03/25/21 07:20 96 03/25/21 05:00 98 F 62 16 129/57 L 98 03/25/21 01:00 21 H 118/54 L 93 L - Problem List Review Problem List Initiated/Reviewed/Updated: Yes - My Orders Last 24 Hours: My Active Orders 03/24/21 09:52 Acetaminophen [TylenoL] 650 mg PO Q4H PRN Albuterol [Proventil Neb Soln] 2.5 mg INH Q6HR PRN Albuterol [Ventolin HFA] 0 gm INH Q4H PRN Dextrose 50% in Water 50 ml IV ONETIME PRN Dextrose [Glutose 15] 15 gm PO ONETIME PRN Ondansetron [Zofran] 4 mg IV Q4H PRN Sodium Chloride 0.9% [Saline Flush] 10 ml FLUSH ASDIRECTED PRN polyethylene glycoL 3350 [MiraLAX] 17 gm PO DAILY PRN 03/24/21 09:52 Patient Status [ADT] Routine Ambulate [RC] QID Cardiac Monitoring [RC] Q6H Communication Order [RC] STAT Diabetes Education [RC] Click to Edit Height and Weight [RC] DAILY Intake and Output [RC] QSHIFT Notify Provider Vital Signs [RC] ASDIRECTED Notify Provider [RC] PRN Oxygen Therapy [RC] PRN Peripheral IV Care [RC] . DIRECTED Pulse Oximetry [RC] CONTINUOUS RT Aerosol Therapy [RC] ASDIRECTED RT Post Treatment Assessment [RC] Click to Edit Up With Assistance [RC] ASDIRECTED Up to Chair [RC] QID VTE/DVT Education [RC] Per Unit Routine Vital Signs [RC] Q4H Peripheral IV Insertion Adult [OM.PC] Routine VTE Pharmacological Contraindications [AST] Per Unit Routine 03/24/21 11:00 DULoxetine [Cymbalta] 60 mg PO DAILY Finasteride [Proscar] 5 mg PO DAILY Insulin Lispro [HumaLOG] See Protocol SUBCUT QIDACANDBED Losartan [Cozaar] 100 mg PO DAILY Pregabalin [Lyrica] 150 mg PO BID amLODIPine [Norvasc] 10 mg PO DAILY hydroCHLOROthiazide 12.5 mg PO DAILY 03/24/21 11:14 Blood Glucose Check, Bedside [RC] QIDACANDBED 03/24/21 17:00 Tamsulosin [Flomax] 0.4 mg PO QPM metFORMIN [Glucophage] 500 mg PO BIDMEALS 03/24/21 21:00 Acetaminophen [Tylenol Extra Strength] 500 mg PO BEDTIME Metoprolol Succinate [Toprol XL] 12.5 mg PO BEDTIME atorvaSTATin [Lipitor] 40 mg PO BEDTIME diphenhydrAMINE [Benadryl] 25 mg PO BEDTIME 03/25/21 08:00 Magnesium Sulfate/Water [Magnesium Sulfate in Water 2 GM/50 ML] 2 gm Premix Bag 1 bag IV Q6H 03/25/21 09:00 Magnesium Oxide 400 mg PO BID 03/25/21 09:44 Warfarin [Coumadin] 6 mg PO ONETIME ONE 03/25/21 17:00 Furosemide [Lasix] 20 mg IVPUSH NOW ONE Potassium Chloride [Klor-Con M20] 40 meq PO ONETIME ONE 03/26/21 05:00 BASIC METABOLIC PANEL,BMP [CHEM] Timed MAGNESIUM [CHEM] Timed 03/26/21 05:11 INR,PT,PROTHROMBIN TIME [COAG] AM 03/26/21 07:30 GLUCOSE POC LAB TO COLLECT JPM [POC] QIDACANDBED 03/26/21 11:30 GLUCOSE POC LAB TO COLLECT JPM [POC] QIDACANDBED 03/26/21 16:30 GLUCOSE POC LAB TO COLLECT JPM [POC] QIDACANDBED 03/26/21 21:00 GLUCOSE POC LAB TO COLLECT JPM [POC] QIDACANDBED 03/27/21 07:30 GLUCOSE POC LAB TO COLLECT JPM [POC] QIDACANDBED 03/27/21 11:30 GLUCOSE POC LAB TO COLLECT JPM [POC] QIDACANDBED 03/27/21 16:30 GLUCOSE POC LAB TO COLLECT JPM [POC] QIDACANDBED 03/27/21 21:00 GLUCOSE POC LAB TO COLLECT JPM [POC] QIDACANDBED 03/28/21 07:30 GLUCOSE POC LAB TO COLLECT JPM [POC] QIDACANDBED 03/28/21 11:30 GLUCOSE POC LAB TO COLLECT JPM [POC] QIDACANDBED 03/28/21 16:30 GLUCOSE POC LAB TO COLLECT JPM [POC] QIDACANDBED 03/28/21 21:00 GLUCOSE POC LAB TO COLLECT JPM [POC] QIDACANDBED 03/29/21 07:30 GLUCOSE POC LAB TO COLLECT JPM [POC] QIDACANDBED - Plan Plan:: ASSESSMENT AND PLAN PROBABLE CONGESTIVE HEART FAILURE-he does have known underlying COPD and history of coronary artery disease. He has improved since admission with less joselin rtness of breath and excellent diuresis -IV furosemide 20 mg now and late afternoon -Echocardiogram when available on Saturday, or as an outpatient -Continue Cozaar and metoprolol -2 g sodium diet -Supplemental oxygen as needed COPD-no evidence of acute exacerbation or underlying pulmonary infection -Continue outpatient medications ELEVATED INR-on long-term oral anticoagulation with warfarin secondary to atrial fibrillation. INR is within therapeutic range today -Recheck INR in a.m. -Warfarin 6 mg p.o. daily TYPE 2 DIABETES MELLITUS -Continue outpatient medications -4 times daily glucometers -Low-dose sliding scale Humalog MAINTENANCE ISSUES -DVT prophylaxis; current therapy with warfarin should provide adequate DVT prophylaxis -GI prophylaxis; not indicated -Cox catheter; not indicated -Nutrition; 2 g sodium diet -Nicotine dependence; not required CODE STATUS-FULL CODE ADMISSION STATUS-patient will be admitted to inpatient status, expect at least a 2 night hospital stay for evaluation and management of problems as outlined above. At the time of this admission I do not reasonably expected evaluation and management of this problem will require more than a 96 hour hospital stay. DISPOSITION-anticipate discharge to home after the hospital stay. PRIMARY CARE PROVIDER-patient is from [facility] and receives his primary care there
[2021-03-25] MEDS: Tamsulosin 0.4 MG Cap.ER PO SCH (17:22)
[2021-03-25] MEDS ORDERED: Furosemide 40 MG/4 ML VIAL IVPUSH ONE (17:42)
[2021-03-25] MEDS: atorvaSTATin 20 MG Tab PO SCH (21:14)
[2021-03-25] MEDS: Metoprolol Succinate 25 MG Tab.ER PO SCH (21:15)
[2021-03-25] MEDS: Acetaminophen 500 MG Tab PO SCH (21:16)
[2021-03-25] MEDS: diphenhydrAMINE 25 MG Cap PO SCH (21:17)
[2021-03-26] MEDS: Insulin Lispro 100 Unit/ML 3 ML KwikPen SUBCUT SCH ×2 (08:03→12:07)
[2021-03-26] MEDS: Pregabalin 75 MG Cap PO SCH (08:07)
[2021-03-26] MEDS: Hydrochlorothiazide 12.5 MG Cap PO SCH (08:07)
[2021-03-26] MEDS: metFORMIN 500 MG Tab PO SCH (08:07)
[2021-03-26] MEDS: Magnesium Oxide 400 MG Tab PO SCH (08:07)
[2021-03-26] MEDS: DULoxetine 30 MG Cap PO SCH (08:07)
[2021-03-26] MEDS: Losartan 50 MG Tab PO SCH (08:08)
[2021-03-26] MEDS: amLODIPine 5 MG Tab PO SCH (08:08)
[2021-03-26] MEDS: Finasteride 5 MG Tab PO SCH (08:08)
[2021-03-26] MEDS ORDERED: Furosemide 20 MG/2 ML VIAL IVPUSH ONE (08:30)
--- NOTE | 2021-03-26 12:30 | PCM.DCSUM1 ---
Discharge Summary - Hospital Course Brief History: Mr. Baldwin is a 75-year-old gentleman who was admitted through the emergency department with shortness of breath and hypoxia secondary to congestive heart failure and underlying COPD. - Discharge Data Discharge Date: 03/26/21 Discharge Disposition: Home, W Home Health Agency 06 Condition: Fair - Referral to Home Health Date of Face to Face Encounter: 03/26/21 Reason for Homebound Status: Weakness, hypoxia, COPD, CHF Primary Care Physician: PCP None Skilled Need: Nursing care to assist with medications, home health aide to assist with personal needs and hygiene, home physical therapy and Occupational Therapy to improve overall strength - Discharge Diagnosis/Problem(s) (1) COPD (chronic obstructive pulmonary disease) SNOMED Code(s): 00327432 ICD Code: J44.9 - CHRONIC OBSTRUCTIVE PULMONARY DISEASE, UNSPECIFIED Status: Acute Current Visit: Yes (2) Hypoxia SNOMED Code(s): 386684502 ICD Code: R09.02 - HYPOXEMIA Status: Acute Current Visit: Yes (3) CHF (congestive heart failure) SNOMED Code(s): 90927491 ICD Code: I50.9 - HEART FAILURE, UNSPECIFIED Status: Acute Current Visit: Yes (4) Chronic a-fib SNOMED Code(s): 665332707 ICD Code: I48.20 - CHRONIC ATRIAL FIBRILLATION, UNSPECIFIED Status: Acute Current Visit: Yes (5) Elevated INR SNOMED Code(s): 093141348 ICD Code: R79.1 - ABNORMAL COAGULATION PROFILE Status: Acute Current Visit: Yes - Patient Summary/Data Hospital Course: Mr. Baldwin is a 75-year-old gentleman who was admitted through the emergency department symptoms of progressive shortness of breath over the past several days. He does have a known history of COPD but denies prior history of congestive heart failure. Shortness of breath had progressed to the point where he was becoming short of breath at rest and much worse shortness of breath with minimal exertion. He denies recent fever or chills, but has had a cough productive of light yellow sputum. He was unable to sleep this past night because of severe shortness of breath. He presented to the emergency department for further evaluation. Chest x-ray does show some evidence of pulmonary edema but no obvious infiltrates. White blood cell count is within normal range. He was treated with supplemental oxygen, nebulizer therapy, and IV furosemide in the emergency department. On initial presentation he was found to be hypoxic on room air. He was admitted to the hospital and treated with supplemental oxygen as needed as well as twice daily IV furosemide. With these interventions he improved significantly and peripheral edema essentially resolved with improvement in his shortness of breath. With monitoring he was noted to be hypoxic with activity and at night. Prior to discharge he had an oxygen saturation of 86% on room air with ambulation. He will be prescribed home oxygen 2 L/min via nasal cannula. The importance of a low-sodium diet was reinforced and he was given written information concerning a low-sodium diet. He will be discharged home with furosemide 20 mg daily. Follow-up appointment will be scheduled with his primary care provider within 1 week. Home care services will be arranged including home physical therapy and Occupational Therapy. Consider outpatient echocardiogram to assess left ventricular systolic and diastolic function, as well as valvular status. INR was supratherapeutic on admission and he was given 3 mg of IM vitamin K in the emergency department. Warfarin was continued and at the time of discharge INR was within therapeutic range. He will be discharged on warfarin 6 mg daily and should have follow-up INR at the time of his clinic appointments. - Patient Instructions Diet: Low Sodium Activity: As Tolerated Other/Special Instructions: Please schedule follow-up appointment with primary care provider within 1 week. Please arrange for home care services including home physical therapy and Occupational Therapy. Please set up home oxygen in cluding portable oxygen 2 L/min via nasal cannula. Consider echocardiogram on an outpatient basis to further evaluate left ventricular function and valvular status. - Discharge Plan *PRESCRIPTION DRUG MONITORING PROGRAM REVIEWED*: Not Applicable *COPY OF PRESCRIPTION DRUG MONITORING REPORT IN PATIENT DEVON: Not Applicable Prescriptions/Med Rec: Furosemide 20 mg PO DAILY #30 tablet Home Medications: Home Meds Acetaminophen/Diphenhydramine [Tylenol Pm Ex-Strength Caplet] 1 each PO BEDTIME 03/24/21 [History] Albuterol Sulfate 2.5 mg IH Q6HR PRN 03/24/21 [History] Albuterol Sulfate [Albuterol Sulfate Hfa] 2 puff IH ASDIRECTED 03/24/21 [History] Alendronate Sodium 70 mg PO WEEKLY 03/24/21 [History] Aspirin [Halfprin] 81 mg PO DAILY 03/24/21 [History] Calcium Carbonate [Calcium] 600 mg PO DAILY 03/24/21 [History] DULoxetine [Cymbalta] 60 mg PO DAILY 03/24/21 [History] Famotidine [Pepcid] 20 mg PO BID 03/24/21 [History] Finasteride 5 mg PO DAILY 03/24/21 [History] Fish Oil/[place]-3 Fatty Acids [Fish Oil 1,000 MG] 1 cap PO DAILY 03/24/21 [History] Losartan [Cozaar] 100 mg PO DAILY 03/24/21 [History] Metoprolol Succinate [Toprol Xl] 12.5 mg PO BEDTIME 03/24/21 [History] Pregabalin [Lyrica] 150 mg PO BID 03/24/21 [History] Tamsulosin [Flomax] 0.4 mg PO DAILY 03/24/21 [History] amLODIPine Besylate [Amlodipine Besylate] 10 mg PO DAILY 03/24/21 [History] atorvaSTATin Calcium [Atorvastatin Calcium] 40 mg PO BEDTIME 03/24/21 [History] hydroCHLOROthiazide [Hydrochlorothiazide] 12.5 mg PO DAILY 03/24/21 [History] metFORMIN [Glucophage] 500 mg PO BIDMEALS 03/24/21 [History] Furosemide 20 mg PO DAILY #30 tablet 03/26/21 [Rx] Warfarin Sodium 6 mg PO DAILY #0 03/26/21 [Rx] Oxygen Therapy Mode: Nasal Cannula Oxygen Flow Rate (L/min): 2 Patient Handouts: Low-Sodium Eating Plan, Heart Failure, Diagnosis, [id number], Heart Failure Eating Plan - Discharge Summary/Plan Comment DC Time >30 min.: No - Patient Data Vitals - Most Recent: Last Vital Signs Temp 95.7 F L 03/26/21 07:13 Pulse 75 03/26/21 07:13 Resp 16 03/26/21 07:13 BP 139/62 03/26/21 08:08 Pulse Ox 94 L 03/26/21 09:00 Weight - Most Recent: 222 lb 7.848 oz I&O - Last 24 hours: Intake & Output 03/25/21 03/26/21 03/26/21 22:59 06:59 14:59 Intake Total 500 360 Output Total 1070 200 Balance -570 -200 360 Lab Results - Last 24 hrs: Laboratory Results - last 24 hr 03/25/21 03/25/21 03/26/21 Range/Units 17:13 21:23 04:10 PT (9.5-12.0) sec INR (0.80-1.20) Sodium 142 (140-148) mmol/L Potassium 4.0 (3.6-5.2) mmol/L Chloride 104 (100-108) mmol/L Carbon Dioxide 30 (21-32) mmol/L Anion Gap 7.8 (5.0-14.0) mmol/L BUN 19 H (7-18) mg/dL Creatinine 1.0 (0.8-1.3) mg/dL Est Cr Clr Drug Dosing 67.99 mL/min Estimated GFR (MDRD) > 60 (>60) Glucose 108 H (74-106) mg/dL POC Glucose 98 107 H (74-106) mg/dL Calcium 8.7 (8.5-10.1) mg/dL Magnesium 2.0 (1.8-2.4) mg/dL 03/26/21 03/26/21 03/26/21 Range/Units 04:10 07:24 11:29 PT 22.0 H (9.5-12.0) sec INR 2.05 H (0.80-1.20) Sodium (140-148) mmol/L Potassium (3.6-5.2) mmol/L Chloride (100-108) mmol/L Carbon Dioxide (21-32) mmol/L Anion Gap (5.0-14.0) mmol/L BUN (7-18) mg/dL Creatinine (0.8-1.3) mg/dL Est Cr Clr Drug Dosing mL/min Estimated GFR (MDRD) (>60) Glucose (74-106) mg/dL POC Glucose 117 H 91 (74-106) mg/dL Calcium (8.5-10.1) mg/dL Magnesium (1.8-2.4) mg/dL Med Orders - Current: Current Medications Acetaminophen (Acetaminophen 325 Mg Tab) 650 mg PO Q4H PRN PRN Reason: Pain (Mild 1-3)/fever Acetaminophen (Acetaminophen 500 Mg Tab) 500 mg PO BEDTIME SOFIA Last Admin: 03/25/21 21:16 Dose: 500 mg Documented by: Albuterol (Albuterol 0.083% 2.5 Mg/3 Ml Neb Soln) 2.5 mg INH Q6HR PRN PRN Reason: Wheezing Last Admin: 03/25/21 21:28 Dose: 2.5 mg Documented by: Albuterol (Albuterol 8 Gm Inhaler) 0 gm INH Q4H PRN PRN Reason: Dyspnea Amlodipine Besylate (Amlodipine 5 Mg Tab) 10 mg PO DAILY COUNTS INCLUDE 234 BEDS AT THE [facility] Last Admin: 03/26/21 08:08 Dose: 10 mg Documented by: Atorvastatin Calcium (Atorvastatin 20 Mg Tab) 40 mg PO BEDTIME COUNTS INCLUDE 234 BEDS AT THE [facility] Last Admin: 03/25/21 21:14 Dose: 40 mg Documented by: Dextrose (Glucose Gel 15 Gm In 37.5 Gm Tube) 15 gm PO ONETIME PRN PRN Reason: Hypoglycemia Dextrose/Water (50% Dextrose In Water 50 Ml Syringe) 50 ml IV ONETIME PRN PRN Reason: Hypoglycemia Diphenhydramine HCl (Diphenhydramine 25 Mg Cap) 25 mg PO BEDTIME COUNTS INCLUDE 234 BEDS AT THE [facility] Last Admin: 03/25/21 21:17 Dose: 25 mg Documented by: Duloxetine HCl (Duloxetine 30 Mg Cap) 60 mg PO DAILY COUNTS INCLUDE 234 BEDS AT THE [facility] Last Admin: 03/26/21 08:07 Dose: 60 mg Documented by: Finasteride (Finasteride 5 Mg Tab) 5 mg PO DAILY COUNTS INCLUDE 234 BEDS AT THE [facility] Last Admin: 03/26/21 08:08 Dose: 5 mg Documented by: Hydrochlorothiazide (Hydrochlorothiazide 12.5 Mg Cap) 12.5 mg PO DAILY COUNTS INCLUDE 234 BEDS AT THE [facility] Last Admin: 03/26/21 08:07 Dose: 12.5 mg Documented by: Insulin Human Lispro (Insulin Lispro 100 Unit/Ml 3 Ml Kwikpen) 0 unit SUBCUT QIDACANDBED COUNTS INCLUDE 234 BEDS AT THE [facility]; Protocol Last Admin: 03/26/21 12:07 Dose: Not Given Documented by: Losartan Potassium (Losartan 50 Mg Tab) 100 mg PO DAILY COUNTS INCLUDE 234 BEDS AT THE [facility] Last Admin: 03/26/21 08:08 Dose: 100 mg Documented by: Magnesium Oxide (Magnesium Oxide 400 Mg Tab) 400 mg PO BID COUNTS INCLUDE 234 BEDS AT THE [facility] Last Admin: 03/26/21 08:07 Dose: 400 mg Documented by: Metformin HCl (Metformin 500 Mg Tab) 500 mg PO BIDMEALS COUNTS INCLUDE 234 BEDS AT THE [facility] Last Admin: 03/26/21 08:07 Dose: 500 mg Documented by: Metoprolol Succinate (Metoprolol Succinate 25 Mg Tab.Er) 12.5 mg PO BEDTIME COUNTS INCLUDE 234 BEDS AT THE [facility] Last Admin: 03/25/21 21:15 Dose: 12.5 mg Documented by: Ondansetron HCl (Ondansetron 4 Mg/2 Ml Sdv) 4 mg IV Q4H PRN PRN Reason: Nausea/Vomiting Polyethylene Glycol (Polyethylene Glycol 3350 Powder 17 Gm Packet) 17 gm PO DAILY PRN PRN Reason: Constipation Pregabalin (Pregabalin 75 Mg Cap) 150 mg PO BID COUNTS INCLUDE 234 BEDS AT THE [facility] Last Admin: 03/26/21 08:07 Dose: 150 mg Documented by: Sodium Chloride (Sodium Chloride 0.9% 10 Ml Syringe) 10 ml FLUSH ASDIRECTED PRN PRN Reason: Keep Vein Open Tamsulosin HCl (Tamsulosin 0.4 Mg Cap.Er) 0.4 mg PO QPM COUNTS INCLUDE 234 BEDS AT THE [facility] Last Admin: 03/25/21 17:22 Dose: 0.4 mg Documented by: Discontinued Medications Albuterol/Ipratropium (Albuterol/Ipratropium 3.0-0.5 Mg/3 Ml Neb Soln) 3 ml NEB ONETIME ONE Stop: 03/24/21 05:16 Last Admin: 03/24/21 05:21 Dose: 3 ml Documented by: Furosemide (Furosemide 40 Mg/4 Ml Vial) 60 mg IVPUSH ONETIME ONE Stop: 03/24/21 05:41 Last Admin: 03/24/21 05:58 Dose: 60 mg Documented by: Furosemide (Furosemide 20 Mg/2 Ml Vial) 20 mg IVPUSH NOW ONE Stop: 03/24/21 16:01 Last Admin: 03/24/21 16:05 Dose: 20 mg Documented by: Furosemide (Furosemide 20 Mg/2 Ml Vial) 20 mg IVPUSH NOW ONE Stop: 03/25/21 08:16 Last Admin: 03/25/21 08:59 Dose: 20 mg Documented by: Furosemide (Furosemide 40 Mg/4 Ml Vial) 20 mg IVPUSH NOW ONE Stop: 03/25/21 17:43 Furosemide (Furosemide 20 Mg/2 Ml Vial) 20 mg IVPUSH NOW ONE Stop: 03/25/21 17:01 Last Admin: 03/25/21 17:23 Dose: 20 mg Documented by: Furosemide (Furosemide 20 Mg/2 Ml Vial) 20 mg IVPUSH NOW ONE Stop: 03/26/21 08:31 Last Admin: 03/26/21 09:16 Dose: 20 mg Documented by: Magnesium Sulfate 2 gm/ Premix 50 mls @ 25 mls/hr IV Q6H SOFIA Stop: 03/25/21 09:59 Last Admin: 03/25/21 09:00 Dose: 25 mls/hr Documented by: Phytonadione (Phytonadione 1 Mg/0.5 Ml Amp) 3 mg IM ONETIME ONE Stop: 03/24/21 06:15 Last Admin: 03/24/21 06:46 Dose: 3 mg Documented by: Potassium Chloride (Potassium Chloride 20 Meq Tab.Er) 40 meq PO ONETIME ONE Stop: 03/25/21 08:16 Last Admin: 03/25/21 09:07 Dose: 40 meq Documented by: Potassium Chloride (Potassium Chloride 20 Meq Tab.Er) 40 meq PO ONETIME ONE Stop: 03/25/21 17:01 Last Admin: 03/25/21 17:23 Dose: 40 meq Documented by: Sodium Chloride (Sodium Chloride 0.9% 10 Ml Syringe) 10 ml FLUSH ASDIRECTED PRN PRN Reason: Keep Vein Open Last Admin: 03/24/21 05:59 Dose: 10 ml Documented by: Warfarin Sodium 5 mg/ Warfarin (Sodium 1 mg) 6 mg PO ONETIME ONE Stop: 03/24/21 13:31 Last Admin: 03/24/21 13:57 Dose: 6 mg Documented by: Warfarin Sodium 5 mg/ Warfarin (Sodium 1 mg) 6 mg PO ONETIME ONE Stop: 03/25/21 12:01 Last Admin: 03/25/21 11:22 Dose: 6 mg Documented by: - Exam Quality Assessment: Reports: Supplemental Oxygen General: Reports: Alert, Oriented, Cooperative, No Acute Distress Lungs: Reports: Clear to Auscultation, Normal Respiratory Effort, Decreased Breath Sounds Cardiovascular: Reports: Regular Rate, No Murmurs, Irregular Rhythm GI/Abdominal Exam: Soft, Non-Tender, No Organomegaly, No Distention Extremities: Non-Tender, No Pedal Edema *Q Meaningful Use (DIS) - VTE *Q VTE Pharmacological Contraindications *Q: High INR Value
== END 2021-03-26 14:15 | disposition home health service (06) | DRG 292 ==
LOC: JP.ED 04:25 → JP.ICU 08:41 → JP.MS 03-25 11:45
PROVIDERS: ADMIT Hospitalist; ATTEND Hospitalist
DX: I11.0 Hypertensive heart disease with heart failure (principal); I48.20 Chronic atrial fibrillation, unspecified; I50.9 Heart failure, unspecified; J44.9 Chronic obstructive pulmonary disease, unspecified; R79.1 Abnormal coagulation profile; I25.10 Atherosclerotic heart disease of native coronary artery without angina pectoris; E78.00 Pure hypercholesterolemia, unspecified; I25.2 Old myocardial infarction; G47.30 Sleep apnea, unspecified; K21.9 Gastro-esophageal reflux disease without esophagitis; N40.0 Benign prostatic hyperplasia without lower urinary tract symptoms; M19.90 Unspecified osteoarthritis, unspecified site; G89.29 Other chronic pain; M54.9 Dorsalgia, unspecified; E11.42 Type 2 diabetes mellitus with diabetic polyneuropathy; F32.9 Major depressive disorder, single episode, unspecified; Z95.1 Presence of aortocoronary bypass graft; E66.9 Obesity, unspecified; Z98.49 Cataract extraction status, unspecified eye; Z79.82 Long term (current) use of aspirin; Z79.899 Other long term (current) drug therapy; Z79.01 Long term (current) use of anticoagulants; Z79.84 Long term (current) use of oral hypoglycemic drugs; Z95.5 Presence of coronary angioplasty implant and graft; Z86.19 Personal history of other infectious and parasitic diseases; Z90.49 Acquired absence of other specified parts of digestive tract; Z98.890 Other specified postprocedural states; Z87.891 Personal history of nicotine dependence
CPT/HCPCS: 36415; 71045 ×2; 80053; 81001; 83880; 84484; 85025; 85379; 85610; 93005; 94640; J1940; J3430; 80048; 82947; 83735; 94762; A9270-GY; J3475; J7620-GY